=== PATIENT | female | born 1970 | race African-American/Black ===

== ENCOUNTER 2016-11-04 14:03 | Emergency (ER) | payer MEDICAID ==
[~2016-11-04] VITALS: Ht 157.5 cm; Wt 96.2 kg
[~2016-11-04 14:03] MED LIST: ACIPHEX20 MG PO; ADVAIR 250-501 EACH INH; ALBUTEROL SULF8.5 GM INH; ALBUTEROL2.5 MG/3 M HHN; AMOXICILLIN500 MG ORAL; AUGMENTIN 875-1 EAC1 ORAL; AZITHROMYCIN250 MG ORAL; BACTROBAN NASAL1 GM NASAL; CALCIUM500 M2 PO; CLINDAMYCIN HC150 MG ORAL; CLINDAMYCIN HC300 MG ORAL; CYCLOBENZAPRINE10 MG ORAL; FERROUS SULFAT325 M2 PO; FISH OIL 1,0001 EAC1 ORAL; FLONASE1 SPRAYS NASAL; HYDROCORTISO28.35 G1 TOPIC; IBUPROFEN600 MG ORAL; KEFLEX PED250 MG/5 M PO; KEFLEX500 MG ORAL; MULTIVITAMINS1 EAC6 ORAL; NORCO 5-325 TA1 EACH ORAL; PANTOPRAZOLE SO40 MG ORAL; PERIDEX 0.12% O16 OZ ORAL; PREDNISONE20 MG ORAL; PREDNISONE20 MG PO; PROAIR HFA8.5 GM INH; PROMETHAZINE-C118 M1 ORAL; PROMETHAZINE-D118 ML ORAL; PROMETHAZINE-D118 ML PO; SYMBICORT 1601 PUFFS INH; TESSALON PERLE100 M2 ORAL; TESSALON PERLE100 MG ORAL; TRAMADOL HCL50 MG ORAL; TYLENOL325 MG ORAL; VITAMIN A AND1 EACH PO; VITAMIN D-40400 UNIT ORAL; XOPENEX HFA15 GM INH; ZITHROMAX250 MG ORAL; ZYRTEC10 MG ORAL
[2016-11-04 14:14] VITALS: BP 128/74
[2016-11-04] MEDS ORDERED: FLONASE ALLERG9.9 ML NS (14:34)
[2016-11-04] MEDS ORDERED: BACLOFEN10 MG ORAL (14:34)
[2016-11-04] MEDS ORDERED: LORATADINE10 M2 PO (14:34)
[2016-11-04 14:42] VITALS: BP 130/82
--- NOTE | 2016-11-04 21:29 | Emergency Room Report ---
History of Present Illness General Chief Complaint: General Complaint Present Illness HPI 46-year-old female complains of multiple complaints. States that she has right ear pain x5 days. Service and the symptoms include pain that goes behind the right ear that radiates down the back associated with a pressure-like sensation and feeling rigors block. Denies any fever chills or upper respiratory tract infection symptoms. Additionally, patient also complains of right-sided back pain x4 days. States that she was twisting to in lifting she felt a sudden sharp pain in her right flank region. Associated symptoms include muscular pain on the right side is worse with bending and lifting. Denies any numbness, tingling, paralysis, paresthesia, muscle, strength, shortness of breath, rash, or chest pain. Allergies: Coded Allergies: PREDNISONE (Verified Adverse Reaction, Severe, 02/04/13) SVT SULFAMETHOXAZOLE (Verified Adverse Reaction, Intermediate, TACHYCARDIA, ) TRIMETHOPRIM (Verified Adverse Reaction, Intermediate, TACHYCARDIA, ) Patient History Past Medical History: see triage record Last Menstrual Period: 10/24/2016 Now: No : 4 Para: 2 Reviewed Nursing Documentation: PMH: Agreed, PSxH: Agreed Nursing Documentation-PMH Hx Cardiac Problems: No - Anemia Hx Hypertension: No - High cholesterol Hx Pacemaker: No Hx Asthma: Yes Hx COPD: No Hx Diabetes: No Hx Gastrointestinal Problems: Yes - GERD Hx Dialysis: No Hx Neurological Problems: No Hx Cerebrovascular Accident: No Hx Seizures: No Review of Systems All Other Systems: negative except mentioned in HPI Physical Exam Vital Signs Date Time Temp Pulse Resp B/P Pulse Ox O2 Delivery O2 Flow Rate FiO2 11/04/16 14:14 98.8 79 16 128/74 100 Room Air Sp02 EP Interpretation: reviewed, normal General Appearance: no apparent distress, alert, GCS 15, non-toxic Head: normocephalic, atraumatic Eyes: bilateral eye PERRL, bilateral eye normal inspection ENT: hearing grossly normal, normal pharynx, no angioedema, normal voice Neck: full range of motion, supple/symm/no masses Respiratory: chest non-tender, lungs clear, normal breath sounds, speaking full sentences Cardiovascular #1: regular rate, rhythm, no edema, no gallop, no murmur, no rub Cardiovascular #2: 2+ carotid (R), 2+ carotid (L) Gastrointestinal: non tender, soft, non-distended Rectal: deferred Genitourinary: normal inspection, no CVA tenderness Musculoskeletal: back normal, gait/station normal, normal range of motion, tender - right mid thoracic region with muscle spasm Neurologic: alert, oriented x3, responsive, motor strength/tone normal, sensory intact, speech normal Psychiatric: judgement/insight normal, memory normal, mood/affect normal, no suicidal/homicidal ideation Skin: normal color, no rash, warm/dry, well hydrated Lymphatic: no adenopathy Medical Decision Making PA Attestation Dr. Wayne is my supervising physician with whom patient management has been discussed with. Diagnostic Impression: Primary Impression: Sinus pressure Additional Impressions: Strain of thoracic region Qualified Codes: S29.019A - Strain of muscle and tendon of unspecified wall of thorax, initial encounter Spasm of thoracic back muscle ER Course Pt. presents to the ED c/o Back pain and Right ear pain Ddx considered but are not limited to Muscle strain, contusion, trauma, slipped disc / AOM, sinusitis, sinus pressure, and URI Vital signs: are WNL, pt. is afebrile H&PE are most consistent with Sinus pressure and thoracic muscle strain with spasm. Right ear pain improved with valsalva. Back muscle has defined trigger point and reproducible pain w/o signs of trauma. ORDERS: none required at this time, the diagnosis is clinical ED INTERVENTIONS: None required at this time. DISCHARGE: At this time pt. is stable for d/c to home. Will provide printed patient care instructions, and any necessary prescriptions. Care plan and follow up instructions have been discussed with the patient prior to discharge. Last Vital Signs Date Time Temp Pulse Resp B/P Pulse Ox O2 Delivery O2 Flow Rate FiO2 11/04/16 14:42 98.6 80 14 130/82 99 Room Air Disposition: HOME, SELF-CARE Condition: Improved Scripts Baclofen* (BACLOFEN*) 10 Mg Tablet 10 MG ORAL THREE TIMES A DAY for 10 Days, #30 TAB Prov: SABRY,TAMEEM P.A. 11/04/16 Fluticasone Propionate (Flonase Allergy Relief) 9.9 Ml Jones.susp 2 SPRAYS NS DAILY for 7 Days, #10 ML Prov: SABRY,TAMEEM P.A. 11/04/16 Loratadine (LORATADINE) 10 Mg Tablet 10 MG PO DAILY for 14 Days, #14 TAB Prov: ELIDA BENJAMIN 11/04/16 Referrals: NON PHYSICIAN (PCP) ELIDA BENJAMIN Nov 04, 2016 21:29
== END 2016-11-04 14:50 | disposition home or self-care (01) ==
LOC: EMR 14:45
DX: R51 Headache (principal); S29.019A Strain of muscle and tendon of unspecified wall of thorax, initial encounter; X58.XXXA Exposure to other specified factors, initial encounter; Y92.9 Unspecified place or not applicable; Z88.2 Allergy status to sulfonamides; Z87.19 Personal history of other diseases of the digestive system; Z87.09 Personal history of other diseases of the respiratory system; D64.9 Anemia, unspecified
CPT/HCPCS: 99282

== ENCOUNTER 2016-11-20 09:52 | Inpatient (IN) | payer MEDICAID ==
[~2016-11-20] VITALS: Ht 157.5 cm; Wt 96.2 kg
[~2016-11-20 09:52] MED LIST changes: +BACLOFEN10 MG ORAL; +FLONASE ALLERG9.9 ML NS; +LORATADINE10 M2 PO
[2016-11-20] MEDS ORDERED: Ketorolac 30mg Inj IV ONE (10:15)
[2016-11-20 10:58] LABS: BASOPHILS % (AUTO) 1.1 % (0.0-2.0); EOSINOPHILS % (AUTO) 0.8 % (0.0-3.0); MEAN CORPUSCULAR HEMOGLOBIN 26.1 PG (27.0-31.0); MEAN CORPUSCULAR HGB CONC 30.6 G/DL (32.0-36.0); MEAN CORPUSCULAR VOLUME 85 FL (80-99); MEAN PLATELET VOLUME 6.1 FL (6.5-10.1); MONOCYTES % (AUTO) 8.2 % (1.0-10.0); NEUTROPHILS % (AUTO) 74.9 % (45.0-75.0); PLATELET COUNT 382 K/UL (150-450); RED BLOOD COUNT 4.05 M/UL (4.20-5.40); RED CELL DISTRIBUTION WIDTH 14.1 % (11.6-14.8); WHITE BLOOD COUNT 11.9 K/UL (4.8-10.8)
[2016-11-20 11:04] LABS: INR 1.1 (0.9-1.1); PROTHROMBIN TIME 11.1 SEC (9.30-11.50)
[2016-11-20 11:09] LABS: ALANINE AMINOTRANSFERASE 8 U/L (3-33); ALBUMIN/GLOBULIN RATIO 0.9 (1.0-2.7); ANION GAP 10 (5-15); ASPARTATE AMINO TRANSFERASE 13 U/L (5-40); CALCIUM 9.2 mg/dL (8.6-10.2); CARBON DIOXIDE 30 mEQ/L (20-30); CHLORIDE 97 mEQ/L (98-107); CREATININE 0.6 mg/dL (0.5-0.9); GLOMERULAR FILTRATION RATE > 60 mL/min (>60); HEMOLYSIS 0; LIPASE 22 U/L (< 60); POTASSIUM 3.9 mEQ/L (3.4-4.9); SODIUM 137 mEQ/L (135-145); TOTAL PROTEIN 7.3 g/dL (6.6-8.7)
[2016-11-20 11:25] VITALS: BP 106/65
[2016-11-20 11:28] LABS: APPEARANCE,URINE SLIGHTLY CLOUDY; KETONES,URINE 1+ (NEGATIVE); LEUKOCYTE ESTERASE ,URINE 3+ (NEGATIVE); NITRITE,URINE NEGATIVE (NEGATIVE); PH,URINE 7 (4.5-8.0); PROTEIN,URINE 2+ (NEGATIVE); UROBILINOGEN,URINE 4 MG/DL (0.0-1.0)
[2016-11-20] MEDS ORDERED: BRIMONIDINE TART5 ML BOTH EYES (11:33)
[2016-11-20] MEDS ORDERED: VITAMIN D400 INTLU ORAL (11:33)
[2016-11-20] MEDS ORDERED: AMOX TR-K CLV1 EAC1 ORAL (11:33)
[2016-11-20] MEDS ORDERED: IRON325 M1 PO (11:36)
[2016-11-20] MEDS ORDERED: FISH OIL300 M1 PO (11:36)
[2016-11-20] MEDS ORDERED: PROAIR HFA8.5 GM INH (11:37)
[2016-11-20] MEDS ORDERED: CIPROFLOXACIN500 M2 ORAL (11:38)
[2016-11-20] MEDS ORDERED: METRONIDAZOLE500 MG ORAL (11:38)
[2016-11-20] MEDS ORDERED: DICLOFENAC SOD2.5 ML BOTH EYES (11:38)
[2016-11-20 11:42] LABS: BACTERIA,URINE FEW /HPF; RBC,URINE 40-60 /HPF (0 - 2); SQUAMOUS EPITHELIAL CELL,UR FEW /LPF (NONE/OCC)
[2016-11-20] MEDS ORDERED: Cefepime HCl 1 GM in D5W 55 ML IVPB ONE (12:00)
[2016-11-20] MEDS ORDERED: metroNIDAZOLE 500mg 100 ML IVPB ONE (12:00)
--- NOTE | 2016-11-20 12:08 | Emergency Room Report ---
History of Present Illness General Chief Complaint: Abdominal Pain Source: Patient Present Illness HPI The patient presents with low abdominal pain. She had embolization on November 15. This was done through the groin area. She's also been on 2 antibiotics ( Cipro and Flagyl) and was having fevers and sweats last night with some chills. She denies any discharge. She claims she is on her period at this time. She usually has moderately heavy bleeding (unchanged) and is not passing clots. No chest pain, SOB, dysuria, dyspnea, dizziness. Pain is suprapubic and 6/10 - crampy, constant and sometimes worsened. The procedure was done at [place]. Allergies: Coded Allergies: PREDNISONE (Verified Adverse Reaction, Severe, 02/04/13) SVT SULFAMETHOXAZOLE (Verified Adverse Reaction, Intermediate, TACHYCARDIA, ) TRIMETHOPRIM (Verified Adverse Reaction, Intermediate, TACHYCARDIA, ) Patient History Past Medical History: see triage record Past Surgical History: other - embolization (fibroid) Social History: Denies: smoking Social History Narrative at home Last Menstrual Period: now Reviewed Nursing Documentation: PMH: Agreed, PSxH: Agreed Nursing Documentation-PMH Past Medical History: No History, Except For Hx Cardiac Problems: No - Anemia Hx Hypertension: No - High cholesterol Hx Pacemaker: No Hx Asthma: Yes Hx COPD: No Hx Diabetes: No Hx Gastrointestinal Problems: Yes - GERD Hx Dialysis: No Hx Neurological Problems: No Hx Cerebrovascular Accident: No Hx Seizures: No Review of Systems All Other Systems: negative except mentioned in HPI Physical Exam Vital Signs Date Time Temp Pulse Resp B/P Pulse Ox O2 Delivery O2 Flow Rate FiO2 11/20/16 09:54 99.9 93 18 121/86 97 Room Air Sp02 EP Interpretation: reviewed, normal General Appearance: well appearing, no apparent distress, GCS 15 Head: normocephalic Eyes: bilateral eye PERRL, bilateral eye normal inspection ENT: moist mucus membranes Neck: supple Respiratory: lungs clear, normal breath sounds Cardiovascular #1: regular rate, rhythm Cardiovascular #2: 2+ radial (R) Gastrointestinal: normal inspection, normal bowel sounds, no mass, non- distended, tenderness - suprapubic Genitourinary: deferred - for CT Musculoskeletal: back normal, gait/station normal, normal range of motion Neurologic: alert, oriented x3, grossly normal Psychiatric: mood/affect normal Skin: normal inspection, warm/dry Medical Decision Making Diagnostic Impression: Primary Impression: Postoperative fever Additional Impressions: Status post embolization of uterine artery Abdominal pain Qualified Codes: R10.30 - Lower abdominal pain, unspecified ER Course Patient presents with abdominal pain, fever on antibiotics post emolization of uterine fibroids. Ddx: perforation, abscess, degerative products, UTI, diverticulitis amongst others. It is concerning that she had fever while on broad spectrum antibiotics. Emergent evaluation with labs, UA, CT. Treatment with IV hydration and toradol (as patient drove here). Labs with leukocytosis. CT with uterine changes. Minimal pyuria. Patient somewhat improved with analgesia and hydration, however, concern still over fevers while on antibiotics and pain. Admit med Dr. Vargas. Discussed with Dr. Feldman to arrange for consultation. Laboratory Tests Test 11/20/16 10:30 11/20/16 11:00 White Blood Count 11.9 K/UL (4.8-10.8) H Red Blood Count 4.05 M/UL (4.20-5.40) L Hemoglobin 10.6 G/DL (12.0-16.0) L Hematocrit 34.5 % (37.0-47.0) L Mean Corpuscular Volume 85 FL (80-99) Mean Corpuscular Hemoglobin 26.1 PG (27.0-31.0) L Mean Corpuscular Hemoglobin Concent 30.6 G/DL (32.0-36.0) L Red Cell Distribution Width 14.1 % (11.6-14.8) Platelet Count 382 K/UL (150-450) Mean Platelet Volume 6.1 FL (6.5-10.1) L Neutrophils (%) (Auto) 74.9 % (45.0-75.0) Lymphocytes (%) (Auto) 15.0 % (20.0-45.0) L Monocytes (%) (Auto) 8.2 % (1.0-10.0) Eosinophils (%) (Auto) 0.8 % (0.0-3.0) Basophils (%) (Auto) 1.1 % (0.0-2.0) Prothrombin Time 11.1 SEC (9.30-11.50) Prothrombin Time INR 1.1 (0.9-1.1) PTT 31 SEC (23-33) Sodium Level 137 mEQ/L (135-145) Potassium Level 3.9 mEQ/L (3.4-4.9) Chloride Level 97 mEQ/L (98-107) L Carbon Dioxide Level 30 mEQ/L (20-30) Anion Gap 10 (5-15) Blood Urea Nitrogen 6 mg/dL (7-23) L Creatinine 0.6 mg/dL (0.5-0.9) Estimate Glomerular Filtration Rate > 60 mL/min (>60) Glucose Level 102 mg/dL (74-106) Lactic Acid Level 1.20 mmol/L (0.66-2.22) Calcium Level 9.2 mg/dL (8.6-10.2) Total Bilirubin 0.3 mg/dL (0.0-1.2) Aspartate Amino Transferase (AST) 13 U/L (5-40) Alanine Aminotransferase (ALT) 8 U/L (3-33) Alkaline Phosphatase 96 U/L (35-104) Total Protein 7.3 g/dL (6.6-8.7) Albumin 3.6 g/dL (3.5-5.2) Globulin 3.7 g/dL Albumin/Globulin Ratio 0.9 (1.0-2.7) L Lipase 22 U/L (< 60) Urine Color Brown Urine Appearance Slightly cloudy Urine pH 7 (4.5-8.0) Urine Specific [place] 1.010 (1.005-1.035) Urine Protein 2+ (NEGATIVE) H Urine Glucose (UA) Negative (NEGATIVE) Urine Ketones 1+ (NEGATIVE) H Urine Occult Blood 5+ (NEGATIVE) H Urine Nitrite Negative (NEGATIVE) Urine Bilirubin Negative (NEGATIVE) Urine Urobilinogen 4 MG/DL (0.0-1.0) H Urine Leukocyte Esterase 3+ (NEGATIVE) H Urine RBC 40-60 /HPF (0 - 2) H Urine WBC 5-10 /HPF (0 - 2) H Urine Squamous Epithelial Cells Few /LPF (NONE/OCC) Urine Bacteria Few /HPF (NONE) Urine HCG, Qualitative Negative CT/MRI/US Diagnostic Results CT/MRI/US Diagnostic Results : Imaging Test Ordered: abd pelvis Impression Fibroids post embolization - no gas. Renal cyst. Hiatal hernia. Last Vital Signs Date Time Temp Pulse Resp B/P Pulse Ox O2 Delivery O2 Flow Rate FiO2 11/20/16 11:25 98.9 82 18 106/65 100 Room Air Status: improved Disposition: ADMITTED INPATIENT Condition: Serious Referrals: NON PHYSICIAN (PCP) Darryl Brown M.D. Nov 20, 2016 12:08
--- NOTE | 2016-11-20 12:39 | Diagnostic Imaging Report ---
Clinical Indication: Suprapubic abdominal pain, status post uterine fibroid embolization on 11/15/2016 Technique: No oral contrast utilized, per emergency room physician request IV administration nonionic contrast. Venous phase spiral acquisition obtained through the abdomen and pelvis. Multiplanar reconstructions were generated. Total dose length product 1026 mGycm. CTDIvol(s) 19 mGy Comparison: None Findings: The uterus is enlarged, demonstrates multiple fibroids. Most of these are hypoattenuating. A few demonstrate central slight hyperattenuation, which may indicate hemorrhage or retained contrast from recent uterine fibroid embolization. No intrauterine gas is demonstrated. There is no evidence of diverticulosis or diverticulitis. The appendix is normal, best appreciated on the coronal reconstructed images. No small bowel distention. No free or loculated peritoneal air or fluid. No gross bowel wall thickening, although evaluation for such is limited in the absence contrast. There is a small sliding-type hiatal hernia. The stomach and duodenum are unremarkable. No free or loculated intraperitoneal air or fluid The gallbladder, bile ducts, liver, pancreas, spleen, adrenals, left kidney are unremarkable. The right kidney demonstrates a subcentimeter low-attenuation lesion which is too small to characterize, most likely benign simple cyst. No mesenteric or retroperitoneal mass or adenopathy. No pelvic mass or adenopathy. The included lung bases are clear. The bones demonstrate degenerative spondylosis changes. Impression: Uterine findings as described, consistent with enlarged fibroid uterus status post recent uterine fibroid embolization. No unusual features or CT evidence of procedural complication demonstrated No other acute abnormality Subcentimeter low-attenuation right renal lesion, too small to characterize, most likely benign simple cyst. No further followup necessary Other incidental findings as noted, including small sliding-type hiatal hernia degenerative spondylosis The CT scanner at [facility] is accredited by the [employer] and the scans are performed using protocols designed to limit radiation exposure to as low as reasonably achievable to attain images of sufficient resolution adequate for diagnostic evaluation.
[2016-11-20] MEDS ORDERED: Cefepime 1gm vial ONE (13:13)
[2016-11-20 13:15] VITALS: BP 104/64
[2016-11-20 15:10] VITALS: BP 90/54
[2016-11-20] MEDS ORDERED: fentaNYL 100 mcg/2 mL IV ONE (15:15)
[2016-11-20 16:35] VITALS: BP 94/54
[2016-11-20] MEDS ORDERED: Pantoprazole Inj IVP ONE (17:45)
[2016-11-20 18:55] VITALS: BP 97/52
[2016-11-20 20:00] VITALS: BP 96/60
[2016-11-20] MEDS ORDERED: Zolpidem 5mg tab ORAL PRN (22:15)
[2016-11-20] MEDS ORDERED: LORazepam Inj 2mg/ml 1ml IV PRN (22:15)
[2016-11-20] MEDS ORDERED: Mylanta II UD 30ml ORAL PRN (22:15)
[2016-11-20] MEDS ORDERED: Miralax 17gm pkt ORAL PRN (22:15)
[2016-11-20] MEDS: Cefepime HCl 1 GM in D5W 55 ML IV SCH (23:00)
[2016-11-21] MEDS ORDERED: Cefepime 1gm vial ONE ×2 (00:49→06:30)
[2016-11-21] MEDS ORDERED: Vancomycin 1gm inj IVPB ONE (00:49)
[2016-11-21 00:56] VITALS: BP 121/77
[2016-11-21] MEDS: Morphine Sulfate 2mg/ml Inj IVP PRN ×2 (01:11→11:32)
[2016-11-21] MEDS: Vancomycin 1gm in D5W 275ml IVPB SCH ×2 (02:02→11:18)
[2016-11-21 04:00] VITALS: BP 123/81
[2016-11-21] MEDS: Cefepime HCl 1 GM in D5W 55 ML IV SCH ×2 (07:02→15:23)
[2016-11-21 07:22] LABS: EOSINOPHILS % (AUTO) 1.1 % (0.0-3.0); LYMPHOCYTES % (AUTO) 22.4 % (20.0-45.0); MEAN CORPUSCULAR HEMOGLOBIN 26.1 PG (27.0-31.0); MEAN CORPUSCULAR HGB CONC 31.5 G/DL (32.0-36.0); MEAN CORPUSCULAR VOLUME 83 FL (80-99); MEAN PLATELET VOLUME 5.6 FL (6.5-10.1); MONOCYTES % (AUTO) 9.7 % (1.0-10.0); NEUTROPHILS % (AUTO) 65.8 % (45.0-75.0); PLATELET COUNT 383 K/UL (150-450); RED BLOOD COUNT 3.83 M/UL (4.20-5.40); RED CELL DISTRIBUTION WIDTH 13.8 % (11.6-14.8); WHITE BLOOD COUNT 7.8 K/UL (4.8-10.8)
[2016-11-21 07:25] LABS: ALANINE AMINOTRANSFERASE 7 U/L (3-33); ANION GAP 12 (5-15); ASPARTATE AMINO TRANSFERASE 12 U/L (5-40); CALCIUM 8.9 mg/dL (8.6-10.2); CARBON DIOXIDE 28 mEQ/L (20-30); CHLORIDE 100 mEQ/L (98-107); CHOLESTEROL 131 mg/dL (< 200); CHOLESTEROL/HDL RATIO 3.4 (3.3-4.4); CREATININE 0.7 mg/dL (0.5-0.9); GLOMERULAR FILTRATION RATE > 60 mL/min (>60); HEMOLYSIS 1; LDL CHOLESTEROL (CALC.) 78 mg/dL (60-99); SODIUM 140 mEQ/L (135-145)
[2016-11-21 08:00] VITALS: BP 106/52
[2016-11-21] MEDS ORDERED: Heparin 5000 units/ml inj SUBQ SCH (09:00)
[2016-11-21 12:05] VITALS: BP 109/46
[2016-11-21] MEDS ORDERED: Albuterol ud Inhalation HHN PRN (12:30)
[2016-11-21] MEDS ORDERED: Brimonidine 0.2% Opth Sol BOTH EYES SCH (14:00)
[2016-11-21] MEDS ORDERED: Flonase Nasal Inhaler 16gm NASAL SCH (14:00)
[2016-11-21] MEDS ORDERED: Vitamin D 1000 IU Tab ORAL SCH (14:00)
[2016-11-21] MEDS ORDERED: Diclofenac Sod 0.1% Op Soln BOTH EYES SCH (14:00)
[2016-11-21 16:13] VITALS: BP 125/68
--- NOTE | 2016-11-21 16:48 | History and Physical ---
History of Present Illness General Date patient seen: Nov 21, 2016 Reason for Hospitalization: Abdominal Pain Present Illness HPI 46 year old female with hx of uterus fibroid embolization on November 15. The patient presents with low abdominal pain. She's also been on 2 antibiotics ( Cipro and Flagyl) and was having fevers and sweats last night with some chills. She denies any discharge. She is admitted for further work up Allergies: Coded Allergies: PREDNISONE (Verified Adverse Reaction, Severe, 02/04/13) SVT SULFAMETHOXAZOLE (Verified Adverse Reaction, Intermediate, TACHYCARDIA, ) TRIMETHOPRIM (Verified Adverse Reaction, Intermediate, TACHYCARDIA, ) Medication History Scheduled Amoxicillin/Potassium Clav 500-125 Mg Tab* (Amox Tr-K Clv 500-125 Mg Tab*), 1 TAB ORAL EVERY 12 HOURS, (Reported) Brimonidine Tartrate* (Alphagan*), 1 DROP BOTH EYES TID, (Reported) Ciprofloxacin Hcl* (Ciprofloxacin Hcl*), 500 MG ORAL EVERY 12 HOURS, (Reported) Diclofenac Sodium (Diclofenac Sodium*), 1 DROP BOTH EYES QID, (Reported) Ferrous Sulfate (Iron), 325 MG PO DAILY, (Reported) Fluticasone Propionate (Flonase Allergy Relief), 2 SPRAYS NS DAILY Metronidazole* (Flagyl*), 500 MG ORAL BID, (Reported) Multivitamin (Multivitamins), 1 TAB ORAL DAILY, (Reported) Brock-3 Fatty Acids (Fish Oil), Unknown Dose PO DAILY, (Reported) Vitamin D (Vitamin D3), 1,000 UNITS ORAL DAILY, (Reported) Scheduled PRN Albuterol Sulfate* (Proair Hfa*), 2 PUFF INH Q6H PRN for Shortness of Breath, ( Reported) Discontinued Medications Acetaminophen (Tylenol), 650 MG ORAL Q6H PRN for For Pain Discontinued Reason: Pt stopped taking med Albuterol Sulfate* (Proair Hfa*), 2 PUFFS INH Q6H PRN for prn, (Reported) Discontinued Reason: Pt stopped taking med Albuterol Sulfate* (Albuterol Sulfate Mdi*), 2 PUFF INH Q4H PRN for cough/ wheezing Discontinued Reason: Pt stopped taking med Baclofen* (Baclofen*), 10 MG ORAL THREE TIMES A DAY Discontinued Reason: Pt stopped taking med Calcium Carbonate (Calcium), 500 MG PO BID, (Reported) Discontinued Reason: Pt stopped taking med Cholecalciferol (Vitamin D3) (Vitamin D-400*), 2,000 UNITS ORAL DAILY, (Reported ) Discontinued Reason: Pt stopped taking med Ferrous Sulfate (Ferrous Sulfate), 325 MG PO BID, (Reported) Discontinued Reason: Pt stopped taking med Ibuprofen* (Motrin*), 600 MG ORAL THREE TIMES A DAY Discontinued Reason: Pt stopped taking med Loratadine (Loratadine), 10 MG PO DAILY Discontinued Reason: Pt stopped taking med Brock-3 Fatty Acids/Fish Oil* (Fish Oil 1,000 Mg Softgel*), 1 CAP ORAL DAILY, ( Reported) Discontinued Reason: Pt stopped taking med Pantoprazole* (Pantoprazole*), 40 MG ORAL HS, (Reported) Discontinued Reason: Pt stopped taking med Patient History Healthcare decision maker Resuscitation status Full Code Advanced Directive on File Past Medical/Surgical History Past Medical/Surgical History: (1) Postoperative fever (2) Vaginal bleeding Review of Systems All Other Systems: negative except mentioned in HPI Physical Exam General Appearance: WD/WN Lines, tubes and drains: peripheral, central line HEENT: normocephalic Neck: non-tender, normal alignment Respiratory/Chest: chest wall non-tender, lungs clear Cardiovascular/Chest: normal peripheral pulses, normal rate Abdomen: normal bowel sounds, soft Genitourinary/Rectal: normal genital exam Extremities: normal range of motion Last 24 Hour Vital Signs Date Time Temp Pulse Resp B/P Pulse Ox O2 Delivery O2 Flow Rate FiO2 11/21/16 16:13 97.5 85 20 125/68 100 Room Air 11/21/16 12:05 97.7 64 20 109/46 100 Room Air 11/21/16 12:02 97.7 11/21/16 08:00 97.7 105 17 106/52 98 Room Air 11/21/16 04:00 98.4 85 19 123/81 99 Room Air 11/21/16 00:56 99.1 97 19 121/77 100 Room Air 11/20/16 20:00 98.4 88 19 96/60 100 Room Air 11/20/16 19:22 98.9 78 14 97/52 100 Room Air 76 11/20/16 18:55 98.9 76 14 97/52 100 Room Air Intake and Output 11/20/16 11/21/16 19:00 07:00 Intake Total 1155 ml Balance 1155 ml IV Total 1155 ml # Voids 1 1 Laboratory Tests Test 11/21/16 06:25 White Blood Count 7.8 K/UL (4.8-10.8) Red Blood Count 3.83 M/UL (4.20-5.40) L Hemoglobin 10.0 G/DL (12.0-16.0) L Hematocrit 31.8 % (37.0-47.0) L Mean Corpuscular Volume 83 FL (80-99) Mean Corpuscular Hemoglobin 26.1 PG (27.0-31.0) L Mean Corpuscular Hemoglobin Concent 31.5 G/DL (32.0-36.0) L Red Cell Distribution Width 13.8 % (11.6-14.8) Platelet Count 383 K/UL (150-450) Mean Platelet Volume 5.6 FL (6.5-10.1) L Neutrophils (%) (Auto) 65.8 % (45.0-75.0) Lymphocytes (%) (Auto) 22.4 % (20.0-45.0) Monocytes (%) (Auto) 9.7 % (1.0-10.0) Eosinophils (%) (Auto) 1.1 % (0.0-3.0) Basophils (%) (Auto) 1.0 % (0.0-2.0) Sodium Level 140 mEQ/L (135-145) Potassium Level 4.0 mEQ/L (3.4-4.9) Chloride Level 100 mEQ/L (98-107) Carbon Dioxide Level 28 mEQ/L (20-30) Anion Gap 12 (5-15) Blood Urea Nitrogen 6 mg/dL (7-23) L Creatinine 0.7 mg/dL (0.5-0.9) Estimat Glomerular Filtration Rate > 60 mL/min (>60) Glucose Level 95 mg/dL (74-106) Hemoglobin A1c 6.0 % (< 6.0) Calcium Level 8.9 mg/dL (8.6-10.2) Total Bilirubin < 0.2 mg/dL (0.0-1.2) Aspartate Amino Transf (AST/SGOT) 12 U/L (5-40) Alanine Aminotransferase (ALT/SGPT) 7 U/L (3-33) Alkaline Phosphatase 87 U/L (35-104) Total Protein 7.0 g/dL (6.6-8.7) Albumin 3.5 g/dL (3.5-5.2) Globulin 3.5 g/dL Albumin/Globulin Ratio 1.0 (1.0-2.7) Triglycerides Level 75 mg/dL (< 150) Cholesterol Level 131 mg/dL (< 200) LDL Cholesterol 78 mg/dL (60-99) HDL Cholesterol 38 mg/dL (> 60) Cholesterol/HDL Ratio 3.4 (3.3-4.4) Thyroid Stimulating Hormone (TSH) 2.020 uIU/mL (0.300-4.500) Height (Feet): 5 Height (Inches): 2.00 Weight (Pounds): 212 Medications Current Medications Medications (Trade) Dose Ordered Sig/Jesse Route PRN Reason Start Time Stop Time Status Last Admin Dose Admin Acetaminophen (Tylenol) 650 mg Q4H PRN ORAL fever 11/20/16 22:15 12/20/16 22:14 Al Hydroxide/Mg Hydroxide (Mylanta II) 30 ml Q6H PRN ORAL dyspepsia 11/20/16 22:15 12/20/16 22:14 Albuterol Sulfate (Proventil) 2.5 mg Q6H PRN HHN Shortness of Breath 11/21/16 12:30 11/26/16 12:29 Brimonidine Tartrate (Alphagan) 1 drop TID BOTH EYES 11/21/16 14:00 12/21/16 13:59 11/21/16 13:43 Cefepime HCl 1 gm/ Dextrose 55 ml @ 110 mls/hr Q8H IV 11/20/16 23:00 11/27/16 22:59 11/21/16 15:23 Dextrose (Dextrose 50%) STAT PRN IV Hypoglycemia 11/20/16 22:15 12/20/16 22:14 Diclofenac Sodium (Diclofenac 0.1% Op Soln) 1 drop QID BOTH EYES 11/21/16 14:00 12/21/16 13:59 11/21/16 13:43 Ferrous Sulfate (Feosol) 325 mg BID ORAL 11/21/16 13:00 12/21/16 12:59 11/21/16 13:12 Fluticasone Propionate (Flonase) 2 spray DAILY NASAL 11/21/16 14:00 12/21/16 13:59 11/21/16 13:43 Heparin Sodium (Porcine) (Heparin 5000 units/ml) 5,000 units EVERY 12 HOURS SUBQ 11/21/16 09:00 12/21/16 08:59 11/21/16 10:00 Lorazepam (Ativan 2mg/ml 1ml) 0.5 mg Q4H PRN IV For Anxiety 11/20/16 22:15 11/27/16 22:14 Morphine Sulfate (Morphine Sulfate) 1 mg Q4H PRN IVP For Pain 11/20/16 22:15 11/27/16 22:14 11/21/16 11:32 Ondansetron HCl (Zofran) 4 mg Q6H PRN IVP Nausea & Vomiting 11/20/16 22:15 12/20/16 22:14 Pantoprazole (Protonix) 40 mg DAILY PRN ORAL acid reflux 11/21/16 14:00 12/21/16 13:59 Polyethylene Glycol (Miralax) 17 gm HSPRN PRN ORAL Constipation 11/20/16 22:15 12/20/16 22:14 Vancomycin HCl 1 ea 1 ea DAILY PRN MISC Per rx protocol 11/20/16 22:15 12/20/16 22:14 Vancomycin HCl/ Dextrose (Vancomycin/D5W) 275 ml @ 183.708 mls/hr Q12H IVPB 11/20/16 23:30 11/25/16 23:29 11/21/16 11:18 Vitamin D (Vitamin D) 1,000 intlu DAILY ORAL 11/21/16 14:00 12/21/16 13:59 11/21/16 13:43 Zolpidem Tartrate (Ambien) 5 mg HSPRN PRN ORAL Insomnia 11/20/16 22:15 12/20/16 22:14 Assessment/Plan Problem List: (1) Vaginal bleeding ICD Codes: N93.9 - Abnormal uterine and vaginal bleeding, unspecified SNOMED: 154107033 (2) Postoperative fever ICD Codes: R50.82 - Postprocedural fever SNOMED: 154187614 Assessment/Plan IV antibiotics check cultures check h/h HENRY NERI Nov 21, 2016 16:48
[2016-11-21] MEDS ORDERED: Tubing IV Secondary IV ONE (17:29)
[2016-11-21] MEDS ORDERED: D5W 275ml ONE (17:29)
--- NOTE | 2016-11-22 12:32 | Diagnostic Imaging Report ---
APPROVED REPORT CPT Code: 01346 Present Symptoms Comments: Pelvic pain BILATERAL: Imaging reveals a patent deep venous system bilaterally. There is no evidence of thrombus within the femoral, popliteal or tibial segments. The greater saphenous veins are also within normal limits. Doppler indicates normal spontaneous flow within these segments.
--- NOTE | 2016-11-22 12:33 | Diagnostic Imaging Report ---
APPROVED REPORT CPT Code: 37631 Symptoms Comments: Pelvic pain BILATERAL: Common femoral artery waveform analysis is within normal limits at rest. Color flow duplex sonography reveals patency of the superficial femoral and popliteal, and tibial arteries. There is no evidence of stenosis or occlusion within these segments. Doppler tibial artery waveform analysis is within normal limits bilaterally.
--- NOTE | 2016-11-22 21:23 | Discharge Summary ---
Discharge Summary Hospital Course Date of Admission Nov 20, 2016 at 12:56 Date of Discharge Nov 21, 2016 at 17:30 Admitting Diagnosis POST OP FEVER HPI Teressa Moralez is a 46 year old female who was admitted on Nov 20, 2016 at 12:56 for Post Op Fever Hospital Course [id number] Discharge Discharge Disposition Patient was discharged to Home (01) Discharge Diagnoses: Thelma Flangaan NP Nov 22, 2016 21:23
--- NOTE | 2016-11-23 03:28 | Discharge Summary 2 SIG ---
DATE OF ADMISSION: 11/20/2016 DATE OF DISCHARGE: 11/21/2016 BRIEF HOSPITAL COURSE: The patient is a 46-year-old female, who presented to ED complaining of lower abdominal pain. She had embolization of the uterus done on 11/15/2016 and has been on two antibiotics, ciprofloxacin and Flagyl. She developed fevers and sweats the night prior and claims that she is on her menstrual periods and usually gets moderate heavy bleeding, which has been unchanged. Denies any passing of clots. The pain was located to be suprapubic, crampy, and constant. She was given IV hydration and Toradol for pain. CT of the abdomen and pelvis showed uterine changes consistent with enlarged fibroid uterus with recent uterine fibroid embolization. There is no unusual feature or CT evidence of procedural complication demonstrated. Venous duplex of lower extremity was negative. She was given antibiotic through intravenous. Vital signs and laboratories have been stable, and following day was discharged home. FINAL DIAGNOSES: 1. Postoperative fever. 2. Abnormal uterine and vaginal bleed 3. Status post recent uterine embolization. Celine Vargas M.D. I have been assigned to dictate discharge summary on this account and I was not involved in the patient's management. Thelma Flanagan N.P. DR: TED JOB#: [id number] CC: SHA
== END 2016-11-21 17:30 | disposition home or self-care (01) | DRG 722 ==
LOC: EMR 10:42 → OBSVTOIN 12:56 → 3E 12:56 → EDBEDREQ 13:11
DX: R50.82 Postprocedural fever (principal); N93.9 Abnormal uterine and vaginal bleeding, unspecified
CPT/HCPCS: 36415; 74177; 80053; 80061; 81003; 81025; 83036; 83605; 83690; 84443; 85025; 85610; 85730; 87040; 87081; 93925; 93970; J2405